=== PATIENT | male | born 1970 | race Caucasian/White ===

== ENCOUNTER 2017-04-25 11:25 | Day surgery (SDC) | payer OTHER ==
[2017-04-25] VITALS (7 sets, daily range): BP systolic 108–122; BP diastolic 28–57; PULSE 52–87; RESP 14–20; O2SAT 93–98
[~2017-04-25] VITALS: Ht 177.8 cm; Wt 101.5 kg
[~2017-04-25 11:25] MED LIST: Dexamethasone 4 mg/mL Inj IVPUSH PRN; EPHEDrine Sulfate 50 mg/mL Inj IVPUSH PRN; HYDROmorphone 1 mg/mL Inj IVPUSH PRN; Lactated Ringer's 1,000 ML IV SCH; Lactated Ringer's 500 ML IV PRN; MetoCLOpramide 5 mg/mL 2 mL Inj IVPUSH PRN; Ondansetron 2 mg/mL 2 mL Inj IVPUSH PRN; Phenylephrine 10,000 mCg/mL Inj IVPUSH PRN; Vancomycin Inj 1,500 MG in 0.9% Sodium Chloride 500 ML IV ONE; fentaNYL-PF 50 mCg/mL 2 mL Inj IVPUSH PRN
[2017-04-25] MEDS ORDERED: Propofol 10,000 mCg/mL 20 mL Inj ONE (11:26)
[2017-04-25] MEDS ORDERED: MetoCLOpramide 5 mg/mL 2 mL Inj ONE (11:26)
[2017-04-25] MEDS ORDERED: Succinylcholine Chloride 20 mg/mL 5 mL Inj ONE (11:26)
[2017-04-25] MEDS ORDERED: Dexamethasone 4 mg/mL Inj ONE (11:26)
[2017-04-25] MEDS ORDERED: Vancomycin 1,000mg/200 mL NS IV ONE (12:05)
[2017-04-25] MEDS ORDERED: Lactated Ringer's 1,000 ML IV ONE ×2 (12:25→16:40)
[2017-04-25] MEDS ORDERED: Mineral Oil-Light (Sterile) 25 mL TOPICAL ONE (14:34)
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
[2017-04-25] MEDS ORDERED: Lidocaine 1%/Epi 1:100,000 30 mL MDV INFILTRATE ONE (15:16)
[2017-04-25] MEDS ORDERED: Lactated Ringer's 1,000 ML IV SCH (15:18)
[2017-04-25] MEDS ORDERED: Lactated Ringer's 500 ML IV PRN (15:18)
[2017-04-25] MEDS ORDERED: HYDROmorphone 1 mg/mL Inj IVPUSH PRN (15:20)
[2017-04-25] MEDS ORDERED: fentaNYL-PF 50 mCg/mL 2 mL Inj IVPUSH PRN (15:20)
[2017-04-25] MEDS ORDERED: MetoCLOpramide 5 mg/mL 2 mL Inj IVPUSH PRN (15:20)
[2017-04-25] MEDS ORDERED: Phenylephrine 10,000 mCg/mL Inj IVPUSH PRN (15:20)
[2017-04-25] MEDS ORDERED: EPHEDrine Sulfate 50 mg/mL Inj IVPUSH PRN (15:20)
[2017-04-25] MEDS ORDERED: Dexamethasone 4 mg/mL Inj IVPUSH PRN (15:20)
[2017-04-25] MEDS ORDERED: Ondansetron 2 mg/mL 2 mL Inj IVPUSH PRN (15:20)
[2017-04-25] MEDS ORDERED: PHYSOSTIGMINE SALICYLATE IV ONE (15:55)
[2017-04-25] MEDS ORDERED: HYDROcodone-APAP 5-325 mg Tablet PO PRN (16:45)
--- NOTE | 2017-04-25 17:45 | PCM.ANEP1 ---
Post Anesthesia PACU Phase 1 Assessment Date of Service: Apr 25, 2017 Vital Signs Vital Signs Date Time Temp Pulse Resp B/P Pulse Ox O2 Delivery O2 Flow Rate FiO2 04/25/17 17:05 82 16 113/57 93 Room Air 04/25/17 17:03 36.1 73 16 122/54 95 Room Air 04/25/17 16:55 36.5 84 14 118/52 93 Room Air 04/25/17 16:50 86 18 108/57 95 Room Air 04/25/17 16:45 87 18 114/50 98 Simple Mask 6 04/25/17 16:40 36.4 87 20 117/54 98 Simple Mask 6 04/25/17 12:39 36.4 52 14 112/28 98 Room Air Anesthetic Administered: GA Level of Alertness: Awake, talking RAMIREZ's with Equal Strength: Yes Pain: Yes Pain Scale Score: 3 Nausea or Vomiting: No CV Function & Hydration Stable: Yes Airway Device: none in PACU Oxygen Delivery: Simple Mask Lungs: Normal Air Movement PACU Phase 2 Assessment Complications: No Follow up Care: N/A Patient Instructions Provided: Yes Comments 04/25/17 17:05 82 16 113/57 93 Room Air Jerrod Sam MD Apr 25, 2017 17:45
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
== END 2017-04-25 23:59 | disposition home or self-care (01) ==
LOC: SAS 11:25
PROVIDERS: ATTEND Orthopaedic Surgery
DX: L90.5 Scar conditions and fibrosis of skin (principal); L60.8 Other nail disorders; M25.541 Pain in joints of right hand; M25.641 Stiffness of right hand, not elsewhere classified; W39.XXXS Discharge of firework, sequela; S46.22 Laceration of muscle, fascia and tendon of other parts of biceps; S41.00 Unspecified open wound of shoulder; S62.511S Displaced fracture of proximal phalanx of right thumb, sequela; Y92.9 Unspecified place or not applicable; Z87.891 Personal history of nicotine dependence; Z86.14 Personal history of Methicillin resistant Staphylococcus aureus infection
CPT/HCPCS: 11760; 13121; 15240; J0330; J1100; J2250; J2765; J3370; J7040; J7120